=== PATIENT | female | born 1945 | race Caucasian/White ===

== ENCOUNTER 2017-05-05 12:43 | Inpatient (IN) | payer MEDICARE, BC ==
[2017-05-05 14:26] LABS: BASOPHILS 0.3 % (0-2); EOSINOPHILS 2.1 % (0-7); HEMATOCRIT 39.1 % (36.0-48.0); HEMOGLOBIN 12.7 g/dL (12-16); IMMATURE GRANULOCYTES 0.2 % (0-5); LYMPHOCYTES 14.6 % (15-50); MCHC 32.5 g/dL (31.0-37.0); MCV 95.4 fL (80.0-100.0); MEAN PLATELET VOLUME 10.9 fL (7.4-10.4); MONOCYTES 14.5 % (2-11); NEUTROPHILS 68.3 % (40-80); PLATELET COUNT 217 10x3/uL (130-400); RDW 13.7 % (11.5-14.5); WBC 8.8 10x3/uL (4.8-10.8)
[2017-05-05 15:40] LABS: ALBUMIN 3.5 g/dL (3.4-5.0); ANION GAP 10.6 mmol/L (8-16); BILIRUBIN - TOTAL 0.32 mg/dL (0.2-1.3); CALCIUM 9.1 mg/dL (8.5-10.1); CARBON DIOXIDE 29.2 mmol/L (21.0-32.0); CREATININE - SERUM 1.1 mg/dL (0.6-1.3); POTASSIUM - SERUM 3.8 mmol/L (3.5-5.1); PROTEIN - SERUM 7.1 g/dL (6.4-8.2)
--- NOTE | 2017-05-05 17:50 | NUR ---
RECEIVED PT TO FLOOR FROM ER VIA STRETCHER. PT AMBULATED FROM STRETCHER TO BED. ABDOMEN TENDER BUT C/O NO PAIN AT THIS TIME. INITIATED IV FLUIDS AND HUNG FLAGYL. REVIEWED HISTORY AND HOME MEDS. HOME MED LIST IS INCOMPLETE PT DOESN'T RECALL ALL HER MEDS AND DOES NOT HAVE LIST AT THIS TIME. ASSESSMENT COMPLETE PER FLOW-SHEET. NO NEEDS AT THIS TIME. DAUGHTER ROOMING IN. WILL CONTINUE TO MONITOR.
[2017-05-05] MEDS ORDERED: BYSTOLIC5 MG PO (19:48)
[2017-05-05] MEDS ORDERED: VITAMIN B-12100 MCG PO (19:49)
[2017-05-05] MEDS ORDERED: VITAMIN D5000 UNIT PO (19:50)
[2017-05-05] MEDS ORDERED: FLAGYL500 MG PO (19:51)
[2017-05-05] MEDS ORDERED: OMEPRAZOLE20 M1 PO (19:51)
[2017-05-06] VITALS (7 sets, daily range): BP systolic 127–153; BP diastolic 70–85; BMI 23.3
[2017-05-06 05:39] LABS: BASOPHILS 0.3 % (0-2); EOSINOPHILS 1.6 % (0-7); HEMATOCRIT 35.9 % (36.0-48.0); HEMOGLOBIN 11.5 g/dL (12-16); IMMATURE GRANULOCYTES 0.3 % (0-5); LYMPHOCYTES 13.8 % (15-50); MCH 30.4 pg (26.0-34.0); MEAN PLATELET VOLUME 11.1 fL (7.4-10.4); PLATELET COUNT 191 10x3/uL (130-400); RBC 3.78 10x6/uL (4.00-5.40); RDW 13.7 % (11.5-14.5); WBC 7.5 10x3/uL (4.8-10.8)
[2017-05-06 06:20] LABS: ALBUMIN 2.7 g/dL (3.4-5.0); ANION GAP 12.2 mmol/L (8-16); BILIRUBIN - TOTAL 0.42 mg/dL (0.2-1.3); CARBON DIOXIDE 25.1 mmol/L (21.0-32.0); CREATININE - SERUM 1.1 mg/dL (0.6-1.3); POTASSIUM - SERUM 4.3 mmol/L (3.5-5.1)
--- NOTE | 2017-05-06 07:00 | NUR ---
REPORT RECIEVED ASSUMED CARE. PATIENT IN BED WITH NO COMPLAINTS. IV INTACT. CALL LIGHT WITHIN REACH.
--- NOTE | 2017-05-06 18:45 | NUR ---
PATIENT IN BED WITH IV INTACT. LAYING ON SIDE TRYING TO SLEEP. NO COMPLAINTS OR SIGNS OF DISTRESS. CALL LIGHT WITHIN REACH.
[2017-05-07] VITALS: BP 138/67
[2017-05-07 04:00] VITALS: BP 146/71
[2017-05-07 04:39] LABS: BASOPHILS 0.3 % (0-2); EOSINOPHILS 1.6 % (0-7); HEMATOCRIT 35.2 % (36.0-48.0); HEMOGLOBIN 11.5 g/dL (12-16); IMMATURE GRANULOCYTES 0.3 % (0-5); LYMPHOCYTES 23.2 % (15-50); MCH 31.2 pg (26.0-34.0); MCHC 32.7 g/dL (31.0-37.0); MCV 95.4 fL (80.0-100.0); MONOCYTES 19.4 % (2-11); NEUTROPHILS 55.2 % (40-80); PLATELET COUNT 196 10x3/uL (130-400); RBC 3.69 10x6/uL (4.00-5.40); RDW 13.7 % (11.5-14.5); WBC 6.4 10x3/uL (4.8-10.8)
[2017-05-07 04:56] LABS: ALBUMIN 2.7 g/dL (3.4-5.0); ANION GAP 10.9 mmol/L (8-16); BILIRUBIN - TOTAL 0.4 mg/dL (0.2-1.3); CALCIUM 8.1 mg/dL (8.5-10.1); POTASSIUM - SERUM 3.9 mmol/L (3.5-5.1); PROTEIN - SERUM 5.6 g/dL (6.4-8.2)
--- NOTE | 2017-05-07 05:00 | NUR ---
HUNG NEW BAG IV FLUIDS AND SCHEDULED FLAGYL. NO OTHER NEEDS. DAUGHTER AT BEDSIDE. CONTINUE GUIDE DOG INSTRUCTOR'S PLAN OF CARE.
--- NOTE | 2017-05-07 07:00 | NUR ---
PT AWAKE AND ALERT. RATES PAIN 1/10 ON LLQ. ON 1L O2 VIA NASAL CANULA. WEARS GLASSES. BS ACTIVE X 4 QUADRANTS. R-AC PERIPHERAL IV WITH NS INFUSING AT 150ML/HR. DENIES ANY NEEDS AT THIS TIME. ABLE TO GET UP TO BATHROOM BY SELF. DAUGHTER IN ROOM. BED LOW POSITION, CALL LIGHT IN REACH.
[2017-05-07 08:30] VITALS: BP 136/77
--- NOTE | 2017-05-07 10:17 | NUR ---
IV LINE DISCONNECTED AT THIS TIME. PT WILL BE GETTING INTO SHOWER. DAUGHTER IS IN ROOM WITH PATIENT. WILL CONTINUE TO MONITOR.
[2017-05-07 13:09] VITALS: BP 159/79
--- NOTE | 2017-05-07 13:12 | NUR ---
REPORTS PAIN 5/10 ON LLQ. MORPHINE 2MG GIVEN IV. DENIES OTHER NEEDS AT THIS TIME. WILL CONTINUE TO MONITOR.
[2017-05-07 15:26] VITALS: BMI 26.9
[2017-05-07 16:39] VITALS: BP 151/75
--- NOTE | 2017-05-07 16:53 | NUR ---
PATIENTS DENIES ANY PAIN AT THIS TIME. NO NEEDS AT THIS TIME. WILL CONTINUE TO MONITOR.
--- NOTE | 2017-05-07 17:09 | NUR ---
DISCHARGE INSTRUCTIONS GIVEN TO PATIENT AND CAREGIVER. PT EATING HIS DINNER AT THIS TIME. WILL WHEEL HIM DOWN WHEN HE IS FINISH WITH HIS MEAL.
--- NOTE | 2017-05-07 19:10 | NUR ---
Patient family demanding to speak to Dr Vanegas, also requesting paperwork to sign out AMA. Romina notified of situation, en route to hospital now.
--- NOTE | 2017-05-07 19:20 | NUR ---
Received patient resing in bed with eyes open and family at bedside, assessment completed per flowsheet. Patient AO x4, calm and cooperative after speaking to Dr Vanegas. Eyes PERRLA @ 4mm with brisk response, sclera is white. S1/S2 noted, rhythmic and regular. Breathing is even and unlabored on room air with O2 sat 95%, lung sounds clear upper with diminished lower. Abdomen is round and soft with bowel sounds active x4, tenderness noted L upper quadrant. Patient ambulates to bedside commode, liquid brown stool collected and sent to lab for testing. Full ROM all extremities with all pulses palpable, skin warm/dry to touch and cap refill < 3 sec. Patient c/o constant/acute abdominal pain, PRN medication given and will reassess. No further needs at this time, all VSS and will continue to monitor.
[2017-05-07 20:00] VITALS: BP 161/91
--- NOTE | 2017-05-07 20:30 | NUR ---
Patient given 1mg of 4mg/ml morphine fo pain, family insists that medication "hits her hard". Approval per Dr Vanegas to give up to 2ml if needed, will reassess.
--- NOTE | 2017-05-07 21:00 | NUR ---
All HS meds given without difficulty, all questions answered to satisfaction. No further needs at this time, all VSS and will continue to monitor.
--- NOTE | 2017-05-07 23:00 | NUR ---
Reassessment completed per flowsheet, patient resting in bed with eyes closed. Patient sleeping on stomach and states "the medicine helps". S1/S2 noted, rhythmic and regular. Breathing is slightly shallow and unlabored on room air with O2 sat 94%. Abdomen is round soft, tenderness noted L upper quadrant. All pulses palpable with cap refill < 3 sec, skin warm/dry to touch. No further needs at this time, all VSS and will continue to monitor.
[2017-05-08] VITALS: BP 158/86
--- NOTE | 2017-05-08 01:00 | NUR ---
Patient resting in bed with eyes closed, laying on stomach. Family at bedside. Denies pain or other needs at this time, all VSS and will continue to monitor.
--- NOTE | 2017-05-08 03:20 | NUR ---
Reassessment completed per flowsheet, patient resting in bed with eyes closed. Patient laying on stomach, states "feels better like this". S1/S2 noted, rhythmic and regular. Breathing is slightly shallow and unlabored on room air with O2 sat 95%. Family at bedisde, no further needs at this time. All VSS and will continue to monitor.
[2017-05-08 04:00] VITALS: BP 137/83
[2017-05-08 04:38] LABS: BASOPHILS 0.3 % (0-2); EOSINOPHILS 1.9 % (0-7); HEMATOCRIT 34.6 % (36.0-48.0); IMMATURE GRANULOCYTES 0.3 % (0-5); LYMPHOCYTES 18.4 % (15-50); MCH 30.2 pg (26.0-34.0); MCHC 31.8 g/dL (31.0-37.0); MCV 95.1 fL (80.0-100.0); MEAN PLATELET VOLUME 11.1 fL (7.4-10.4); MONOCYTES 15.9 % (2-11); NEUTROPHILS 63.2 % (40-80); PLATELET COUNT 201 10x3/uL (130-400); RBC 3.64 10x6/uL (4.00-5.40); RDW 13.7 % (11.5-14.5); WBC 6.8 10x3/uL (4.8-10.8)
--- NOTE | 2017-05-08 05:00 | NUR ---
AM labs collected without difficulty, patient resting in bed with eyes open watching TV. Patient denies pain or other needs at this time, all VSS and will continue to monitor.
[2017-05-08 05:27] LABS: ALBUMIN 2.7 g/dL (3.4-5.0); ANION GAP 13.3 mmol/L (8-16); BILIRUBIN - TOTAL 0.4 mg/dL (0.2-1.3); CARBON DIOXIDE 25.1 mmol/L (21.0-32.0); POTASSIUM - SERUM 3.4 mmol/L (3.5-5.1); PROTEIN - SERUM 5.8 g/dL (6.4-8.2)
--- NOTE | 2017-05-08 07:30 | NUR ---
PT WAS RECEIVED THIS AM LYING IN BED. SHE STATES THAT SHE IS NOT HAVING ANY PROBLEMS RIGHT NOW. VSS. GEN- AWAKE AND ALERT. LUNGS- CLEAR. HEART- RRR. ABD- SOFT, WITH SOME GENERALIZED TENDERNESS. BS+. EXT - NO EDEMA NOTED WITH SCD'S. IV R AC WITH NS INFUSING AT 100 CC/HR. BED IS LOW. SIDE RAILS UP X 2 AND CALL LIGHT IN REACH.
[2017-05-08 08:52] VITALS: BP 153/94
--- NOTE | 2017-05-08 10:27 | NUR ---
Patient Name: SONIA REYNA Admission Status: ER Accout number: [id number] Admission Date: 05-06-2017 : 1945 Admission Diagnosis: Attending: ROBERT ADRIAN Current LOS: 2 Anticipated DC Date: 05-10-2017 Planned Disposition: Home Primary Insurance: MEDICARE A & B Discharge Planning Comments: CM MET WITH PATIENT AND JAMILAH (JOSIAH) REGARDING D/C NEEDS AND PLANS. PATIENT STATED SHE LIVES WITH HER SISTER AND WILL RETURN THERE AT DISCHARGE. PATIENT HAS 1 STEP TO ENTER HOME AND NO STAIRS INSIDE. PATIENT STATED SHE IS INDEPENDENT WITH HER CARE AND HAS A CANE, WALKER, WHEELCHAIR, AND SHOWER CHAIR AT HOME. PATIENTS PCP IS DR. CRUZ IN [place] AND USES [facility] IN [place]. PATIENT IS REFUSING HOME HEALTH AT THIS TIME. CM WILL CONTINUE TO FOLLOW PATIENT WITH D/C NEEDS AND PLANS. PCP DR. CRUZ ([place]) [facility] IN [place]- [phone] JOSIAH REYNA (DAUGHTER) [phone] Qualitative Field Coordinator: Liz Mcgee Is the patient Alert and Oriented? Yes 0 * How many steps to enter\exit or inside your home? 1 0 * PCP DR. CRUZ ([place]) 0 * [facility] IN [place] 0 * Preadmission Environment Home with Family 0 * ADLs Independent 0 * Equipment Cane Shower Chair Walker Wheelchair 0 * List name and contact numbers for known caregivers / representatives who currently or will assist patient after discharge: JOSIAH REYNA (DAUGHTER) [phone] 0 * Community resources currently utilized None 0 * Additional services required to return to the preadmission environment? Yes 0 * Can the patient safely return to the preadmission environment? Yes 0 * Has this patient been hospitalized within the prior 30 days at any hospital? No 0 Grand Total: 0
--- NOTE | 2017-05-08 10:30 | NUR ---
PT IS RESTING IN BED ON HER STOMACH. HER DAUGHTER IS AT BEDSIDE AND WANTS TO KNOW WHEN HER TEST ARE BECAUSE SHE 9HER DAUGHTER WANTS TO GO HOME.
--- NOTE | 2017-05-08 10:53 | NUR ---
X- RAY IS HERE TO DO X-RAY IN ROOM.
--- NOTE | 2017-05-08 11:30 | NUR ---
RADIOLOGY IS BACK TO RE DO X-RAY.
[2017-05-08 12:12] VITALS: BP 155/80
--- NOTE | 2017-05-08 14:00 | NUR ---
PT IS UP TO TAKE A SHOWER. IV SALINE LOCKED AND COVERED FOR SHOWER. PT TOLERATED WELL. PT IS NOW DRESSED AND BACK TO BED. IV HOOKED BACK UP AND FLAGYL PIGGYBACK STARTED.
--- NOTE | 2017-05-08 15:44 | NUR ---
DR BHAKTA OFFICE CALLED AND HER NURSE STATED THAT UPON DISCHARGE THAT SHE WANTS HER TO GO HOME ON [place] AND FLAGYL. SHE WANTS HER TO HAVE A TOTAL OF 10 DAYS WITH HOSPITALIZATION AND HOME. GAVE INFO TO DISCHARGE NURSE.
[2017-05-08 16:23] VITALS: BP 123/73
--- NOTE | 2017-05-08 18:36 | NUR ---
PTS DAUGHTER STATES SHE FEELS LIKE SHE HAS FEVER. CHECKED TEMP, 100.9. PT IS ALSO NAUSEATED. ZOFRAN GIVEN. BED IS LOW, SIDE RAILS UP X 2 AND CALL LIGHT IN REACH.
--- NOTE | 2017-05-08 19:40 | NUR ---
SHIFT ASSESSMENT COMPLETE. PT'S DAUGHTER AT BEDSIDE. SHE STATEST THAT SHE FEELS RESTLESS AT THIS TIME. REPOSITIONED FOR COMFORT. S1S2 AUDIBLE, HR REGULAR. RR EVEN AND UNLABORED, CLEAR LUNG SOUNDS THROUGHOUT ALL LOBES. ABD IS SOFT AND NONTENDER TO TOUCH. SHE DENIES ANY PAIN AT THIS TIME. RADIAL AND PEDAL PULSES PALP. R AC PIV INFUSING NS @ 100 ML/HR. DRESSING CDI WITH NO SIGNS OF INFECTION. WILL CONT WITH POC.
[2017-05-08 20:00] VITALS: BP 155/82
--- NOTE | 2017-05-09 02:00 | NUR ---
CHANGED IV TUBING. SWAB CAPPED AND LABELED. PT DENIES ANY PAIN AT THIS TIME. WILL CONT WITH POC.
--- NOTE | 2017-05-09 03:20 | NUR ---
NO SIGNS OF ACUTE DISTRESS NOTED. PT IS LYING ON HER STOMACH. CALL LIGHT IN REACH. BED IN LOWEST POSITION. WILL CONT WITH POC.
[2017-05-09 04:00] VITALS: BP 173/95
[2017-05-09 05:09] LABS: BASOPHILS 0.2 % (0-2); HEMATOCRIT 33.8 % (36.0-48.0); IMMATURE GRANULOCYTES 0.2 % (0-5); LYMPHOCYTES 23.4 % (15-50); MCH 30.7 pg (26.0-34.0); MCHC 32.5 g/dL (31.0-37.0); MCV 94.4 fL (80.0-100.0); MEAN PLATELET VOLUME 10.7 fL (7.4-10.4); MONOCYTES 19.7 % (2-11); NEUTROPHILS 53.5 % (40-80); PLATELET COUNT 200 10x3/uL (130-400); RBC 3.58 10x6/uL (4.00-5.40); RDW 13.5 % (11.5-14.5); WBC 5.7 10x3/uL (4.8-10.8)
[2017-05-09 05:26] LABS: ALBUMIN 2.7 g/dL (3.4-5.0); ANION GAP 9.8 mmol/L (8-16); BILIRUBIN - TOTAL 0.2 mg/dL (0.2-1.3); CALCIUM 8.3 mg/dL (8.5-10.1); CARBON DIOXIDE 28.6 mmol/L (21.0-32.0); CREATININE - SERUM 0.9 mg/dL (0.6-1.3); POTASSIUM - SERUM 3.4 mmol/L (3.5-5.1); PROTEIN - SERUM 5.6 g/dL (6.4-8.2)
--- NOTE | 2017-05-09 07:48 | NUR ---
PT STATES THAT SHE HAS A HEADACHE. ASKED IF SHE COULD HAVE SOMETHING FOR THIS. TYLENOL 650 MG GIVEN PO.
--- NOTE | 2017-05-09 08:45 | NUR ---
X-RAY IS HERE TO GET PT VIA WHEELCHAIR.
[2017-05-09 09:18] VITALS: BP 161/95
--- NOTE | 2017-05-09 10:30 | NUR ---
DR ASH IS HERE TO SEE PT. NEW ORDERS ACKNOWLEDGED.
--- NOTE | 2017-05-09 11:23 | NUR ---
PT IS UP AND IN SHOWER. LINENS CHANGED. PT TOLERATED WELL
[2017-05-09 12:32] VITALS: BP 150/83
--- NOTE | 2017-05-09 14:00 | NUR ---
PT WAS BROUGHT BACK FROM X-RAY AND HER IV WAS INFILTRATED AND LEAKING. WILL RE-SITE. TIP WAS INTACT.
--- NOTE | 2017-05-09 16:00 | NUR ---
PT OFFERS NO COMPLAINTS. BED IS LOW. SIDE RAILS UP X 2 AND CALL LIGHT IN REACH.
[2017-05-09 17:28] VITALS: BP 158/86
--- NOTE | 2017-05-09 18:31 | NUR ---
PT IS RESTING IN BED WATCHING TV WITH HER GRANDAUGHTER. OFFERS NO COMPLAINTS. NESHA JACKSON WAS INITIATED. IV PATENT.
--- NOTE | 2017-05-09 19:47 | NUR ---
RECIEVED UP IN BED WITH EYES OPEN AND TV ON. PLEASANT AND COOPERATIVE. ALERT AND ORIENTED. DENIES ANY PAIN AT THIS TIME. IV TO LEFT HAND WITH NS RUNNING AT 100CC/HR. NO C/O VOICED AT THIS TIME,
[2017-05-09 20:00] VITALS: BP 157/79
[2017-05-10] VITALS: BP 140/74; BP 151/77
[2017-05-10 04:00] VITALS: BP 151/77
[2017-05-10 05:25] LABS: BASOPHILS 0.4 % (0-2); EOSINOPHILS 4.5 % (0-7); HEMATOCRIT 35.6 % (36.0-48.0); HEMOGLOBIN 11.6 g/dL (12-16); IMMATURE GRANULOCYTES 0.2 % (0-5); LYMPHOCYTES 26.6 % (15-50); MCH 30.6 pg (26.0-34.0); MCHC 32.6 g/dL (31.0-37.0); MCV 93.9 fL (80.0-100.0); MEAN PLATELET VOLUME 10.9 fL (7.4-10.4); MONOCYTES 14.8 % (2-11); NEUTROPHILS 53.5 % (40-80); PLATELET COUNT 233 10x3/uL (130-400); RBC 3.79 10x6/uL (4.00-5.40); RDW 13.6 % (11.5-14.5); WBC 5.6 10x3/uL (4.8-10.8)
[2017-05-10 05:46] LABS: ALBUMIN 2.8 g/dL (3.4-5.0); ANION GAP 6.7 mmol/L (8-16); BILIRUBIN - TOTAL 0.23 mg/dL (0.2-1.3); CALCIUM 8.5 mg/dL (8.5-10.1); CARBON DIOXIDE 30.1 mmol/L (21.0-32.0); CREATININE - SERUM 0.9 mg/dL (0.6-1.3); POTASSIUM - SERUM 3.8 mmol/L (3.5-5.1); PROTEIN - SERUM 6.2 g/dL (6.4-8.2)
--- NOTE | 2017-05-10 07:00 | NUR ---
REPORT RECEIVED, ASSUMED CARE OF PT. RESTING WITH EYES SHUT, EASILY AROUSED. L HAND IV INFUSING FLUIDS ORDERED, PATENT, DRSG C/D/I. BED IN LOWEST POSITION, SIDE RAILS UP X 2, CALL LIGHT WITHIN REACH.
[2017-05-10] MEDS ORDERED: LEVAQUIN500 MG PO (07:48)
[2017-05-10] MEDS ORDERED: FLAGYL500 MG PO (07:48)
[2017-05-10 08:30] VITALS: BP 147/87
--- NOTE | 2017-05-10 09:50 | NUR ---
CM REASSESSMENT NOTE: PATIENT IS DISCHARGING HOME TODAY. PATIENT REF. HOME HEALTH AND HAD NO OTHER NEEDS FOR DISCHARGE. FAMILY DRIVING HER HOME. IMM SERVED
[2017-05-10 12:01] VITALS: BP 154/71
--- NOTE | 2017-05-10 14:20 | NUR ---
pt discharge instructions given, verbalized understanding and signed. l hand iv d/c'd, bleed control, bandage applied.
--- NOTE | 2017-05-10 14:27 | NUR ---
PT LEFT FLOOR VIA WHEELCHAIR WITH HOSPITAL STAFF AND FAMILY MEMBER. TRANSPORTED TO FAMILY VEHICLE, PERSONAL BELONGINGS WITH PT. ALL QUESTIONS ANSWERED, NO SIGNS OF ACUTE DISTRESS.
== END 2017-05-10 14:28 | disposition home or self-care (01) | DRG 392 ==
LOC: D.ER 12:43 → D.MS 18:33 → OBSVTIME 18:33 → D.MS 05-06 13:05
PROVIDERS: Emergency Medicine; Family Medicine; Nurse Practitioner Acute Care; ADMIT Family Medicine
DX: K52.9 Noninfective gastroenteritis and colitis, unspecified (principal); J98.11 Atelectasis; I10 Essential (primary) hypertension; K21.9 Gastro-esophageal reflux disease without esophagitis; R50.9 Fever, unspecified; J43.9 Emphysema, unspecified